=== PATIENT | female | born 1975 | race Caucasian/White ===

== ENCOUNTER 2023-11-02 11:25 | Emergency (ER) | payer OTHER ==
[~2023-11-02] VITALS: Ht 160 cm; Wt 76.2 kg
[2023-11-02 11:51] VITALS: BP 145/82; PULSE 59; RESP 18; TEMP 97.3; O2SAT 98
[2023-11-02] MEDS: IBUPROFEN 600 MG TAB PO ONE (12:19)
[2023-11-02] MEDS ORDERED: IBUP-2213 PO (13:28)
[2023-11-02 13:37] VITALS: BP 134/70; PULSE 88; RESP 18; TEMP 97.3; O2SAT 99
== END 2023-11-02 13:37 | disposition home or self-care (01) ==
LOC: MED 11:25
DX: S83.92XA Sprain of unspecified site of left knee, initial encounter (principal); Z79.1 Long term (current) use of non-steroidal anti-inflammatories (NSAID); X58.XXXA Exposure to other specified factors, initial encounter; Y93.89 Activity, other specified; Y92.89 Other specified places as the place of occurrence of the external cause; Y99.8 Other external cause status
CPT/HCPCS: 93971; 99284; Q0092